=== PATIENT | male | born 1975 | race Caucasian/White ===

== ENCOUNTER → 2017-03-10 | Outpatient (CLI) | payer OTHER ==
--- NOTE | 2017-03-10 13:55 | REP ---
TRIPLE PHASE BONE SCAN LOWER LEGS: Following the intravenous administration of 22 millicuries technetium 99m MDP, the patient's lower legs are images in the flow phase in the anterior and posterior projections, showing symmetrical blood flow. Immediate blood pool and 2-hour delayed images are performed of the lower legs in the anterior, posterior, and both lateral projections. There is mild increased blood pooling and focal increased intense delayed activity in the distal left tibia. Findings are consistent with a focal stress fracture at this location. IMPRESSION: Focal stress fracture, distal left tibia. Signed by Bassam Celaya MD 03/10/2017 08:01 P
== END ==
LOC: M RAD 09:52
PROVIDERS: ATTEND Physician Assistant Medical
DX: S86.891A Other injury of other muscle(s) and tendon(s) at lower leg level, right leg, initial encounter (principal); S82.302A Unspecified fracture of lower end of left tibia, initial encounter for closed fracture; X50.9XXA Other and unspecified overexertion or strenuous movements or postures, initial encounter; Y92.9 Unspecified place or not applicable; Y99.9 Unspecified external cause status
CPT/HCPCS: 78315; A9503

== ENCOUNTER 2018-05-15 18:51 | Emergency (ER) | payer OTHER ==
[~2018-05-15] VITALS: Ht 188 cm; Wt 220.0 kg
[2018-05-15 18:51] VITALS: BP 141/91
[2018-05-15] MEDS ORDERED: MELO15TA28 PO (18:57)
--- NOTE | 2018-05-15 19:46 | REP ---
Clinical: Trauma. Technique: AP, lateral, bilateral oblique views right foot . Findings: The osseous structures and joint spaces are intact and normal. There is no evidence for acute fracture or dislocation. Surrounding soft tissues are unremarkable. No subcutaneous emphysema or radiodense foreign body. Impression: No acute fracture or dislocation. Electronically Signed by Ajit Robins MD 05/15/2018 07:38 P
== END 2018-05-15 21:37 | disposition home or self-care (01) ==
LOC: M ED 18:51
DX: S90.121A Contusion of right lesser toe(s) without damage to nail, initial encounter (principal); W23.0XXA Caught, crushed, jammed, or pinched between moving objects, initial encounter; Y92.099 Unspecified place in other non-institutional residence as the place of occurrence of the external cause; Y93.9 Activity, unspecified; Y99.9 Unspecified external cause status; Z79.899 Other long term (current) drug therapy

== ENCOUNTER 2018-06-26 21:56 | Emergency (ER) | payer OTHER ==
[~2018-06-26] VITALS: Ht 188 cm; Wt 100.0 kg
[~2018-06-26 21:56] MED LIST: MELO15TA28 PO
[2018-06-26] MEDS ORDERED: IBUP80TA PO (22:12)
[2018-06-26 22:13] LABS: HEMOGLOBIN 14.2 g/dl (13.5-17.5); MEAN CORPUSCULAR HEMOGLOBIN 28.7 pg (27.0-33.0); RED BLOOD COUNT 4.94 10^6/uL (4.30-6.10); WHITE BLOOD COUNT 5.6 10^3/uL (4.0-10.0)
[2018-06-26 22:14] LABS: BASO % 0.7 % (0.0-1.0); EOS # 0.2 10^3/uL (0.0-0.50); EOS % 3.6 % (0.0-3.0); LYMPH # 2.3 10^3/uL (1.5-4.5); LYMPH % 41.6 % (24.0-44.0); MONO # 0.7 10^3/uL (0.0-0.8); NEUTROPHILS # 2.3 10^3/uL (1.8-7.7); NEUTROPHILS % 41.7 % (36.0-66.0); PLATELET COUNT, AUTOMATED 221 10^3/uL (150-450)
[2018-06-26] MEDS ORDERED: KETOROLAC 30 MG/ML VIAL (J1885) IV ONE (22:30)
[2018-06-26 22:41] LABS: BLOOD UREA NITROGEN 24 MG/DL (7-18); CALCIUM LEVEL 8.5 MG/DL (8.5-10.1); CARBON DIOXIDE LEVEL 33 MEQ/L (21-32); CHLORIDE LEVEL 102 MEQ/L (98-107); CPK CREATINE PHOSPHOKINASE 277 U/L (39-308); CREATININE FOR GFR 1.49 MG/DL (0.70-1.30); GLOMERULAR FILTRATION RATE 54.3 (>60); GLUCOSE, FASTING 96 MG/DL (70-100); MB/CK RELATIVE INDEX 0.94 (< OR =4); POTASSIUM SERUM 4.3 MEQ/L (3.5-5.1); SODIUM LEVEL 139 MEQ/L (136-145); TROPONIN I < 0.02 NG/ML (< 0.10)
[2018-06-26] MEDS ORDERED: ISOVUE-370 76% 100ML VIAL (Q9967) As Ordered ONE (22:56)
[2018-06-26] MEDS ORDERED: NS 1,000 ML IV ONE (23:15)
--- NOTE | 2018-06-26 23:58 | REPVR ---
EXAM: CT Angiography Chest With Contrast EXAM DATE/TIME: 06/26/2018 11:06 PM CLINICAL HISTORY: 43 years old, male; Pain; Chest pain; Type not specified; Additional info: Chest pain, SOB TECHNIQUE: Axial computed tomographic angiography images of the chest with intravenous contrast using CT angiography protocol. All CT scans at this facility use at least one of these dose optimization techniques: automated exposure control; mA and/or kV adjustment per patient size (includes targeted exams where dose is matched to clinical indication); or iterative reconstruction. Coronal and sagittal reformatted images were created and reviewed. MIP reconstructed images were created and reviewed. CONTRAST: 75 ml of ISOVUE 370 administered intravenously. COMPARISON: CR PORTABLE CHEST X-RAY 06/26/2018 10:12 PM FINDINGS: Pulmonary arteries: There is opacification of the pulmonary artery with no evidence of pulmonary embolus. Aorta: There is opacification of the aorta which appears intact. Lungs: Normal. No consolidation. No masses. Pleural space: Normal. No pneumothorax. No pleural effusion. Heart: The heart is normal in size. There is no evidence of pericardial effusion. There is no evidence of mediastinal or hilar lymphadenopathy. There is a 2.5 CM by 1 CM area of calcified lymph nodes in the subcarinal location. There is a calcified lymph node at the right hilum. Calcified granulomas noted on the right. This may be from previous TB exposure. Strong Bones/joints: Unremarkable. No acute fracture. Soft tissues: Unremarkable. IMPRESSION: 1. No evidence of pulmonary embolus. 2. Calcified subcarinal and right hilar lymph node and calcified granulomas on the right may be the result of previous TB exposure. Electronically signed by: Todd Dyer On 06/26/2018 23:58:17 PM
[2018-06-27 01:30] VITALS: BP 121/83
--- NOTE | 2018-06-27 01:30 | REPVR ---
EXAM: CT Chest Without Contrast EXAM DATE/TIME: 06/27/2018 12:19 AM CLINICAL HISTORY: 43 years old, male; Chest pain; Additional info: Evaluate size of lymph node, ? extravascularization TECHNIQUE: Axial computed tomography images of the chest without intravenous contrast. All CT scans at this facility use at least one of these dose optimization techniques: automated exposure control; mA and/or kV adjustment per patient size (includes targeted exams where dose is matched to clinical indication); or iterative reconstruction. Coronal and sagittal reformatted images were created and reviewed. MIP reconstructed images were created and reviewed. COMPARISON: CT ANGIO CHEST 06/26/2018 10:57 PM FINDINGS: Lungs: There are calcified granulomas in the right lower lobe measuring up to 12 mm and a 2 mm calcified granuloma in the left upper lobe. The lungs are otherwise clear. There is no lung consolidation, cavitary lesion, pulmonary infarct, or mass. No emphysematous changes or interstitial lung disease is noted. The major airways are patent. Pleural space: Normal. No pneumothorax. No pleural effusion. Heart: No cardiomegaly. No pericardial effusion. Mediastinum: No mediastinal mass, hemorrhage, or pneumomediastinum is noted. Aorta: There is no thoracic aortic aneurysm or intramural hematoma. Lymph nodes: There is a 10 mm calcified subcarinal lymph node and 6 mm and 10 mm calcified right hilar lymph nodes, which represent calcified granulomas (measurements were taken in short axis). No abnormally enlarged noncalcified lymph nodes are noted. Bones/joints: The imaged bony structures are intact. There is no suspicious osteolytic or osteoblastic lesion. Soft tissues: Unremarkable. Adrenals: Normal. No mass. IMPRESSION: 1. No acute findings in the chest. 2. Calcified granulomas in the left upper lobe, right lower lobe, right hilum, and subcarinal region, which may represent the sequela of prior granulomatous infection and/or disease. Electronically signed by: Hunter Reyes On 06/27/2018 01:30:20 AM
[2018-06-27] MEDS ORDERED: NAPR-50 PO (01:43)
--- NOTE | 2018-06-27 07:26 | ECGEPIP ---
Stationary ECG Study [facility] - ED Test Date: 2018-06-26 Pat Name: KORY PONCE Department: Room: - Gender: M [employer]: nathalie : 1975 Requested By: SRINI Coleman Order Number: [id number] Reading MD: Julieta Krause Measurements Intervals [place] Rate: 50 P: 30 TN: 186 QRS: 18 QRSD: 110 T: 30 QT: 441 QTc: 402 Interpretive Statements SINUS BRADYCARDIA IVCD NO PRIOR FOR COMPARISON Electronically Signed On 06-27-2018 7:26:09 EST by Julieta Krause
--- NOTE | 2018-06-27 08:07 | REP ---
Clinical: Chest pain . Comparison: None . Findings: The mediastinum and cardiac silhouette are stable and within normal limits for portable technique. The lung ballard are clear without acute consolidation, effusion, or pneumothorax. Calcified granuloma at the right lung base and calcified hilar lymph nodes are appreciated. Skeletal structures are intact. Impression: No acute cardiopulmonary process appreciated. Electronically Signed by Ajit Robins MD 06/27/2018 07:59 A
--- NOTE | 2018-06-27 16:54 | ED PDOC ---
Post-Departure Follow-Up ct chest final report to fr delbert gotti for fu Tigist Roberts MD Jun 27, 2018 16:54
--- NOTE | 2018-06-27 16:57 | ED PDOC ---
Post-Departure Follow-Up ft delbert gotti faxed formal report of cta for fu Tigist Roberts MD Jun 27, 2018 16:57
== END 2018-06-27 01:49 | disposition home or self-care (01) ==
LOC: M ED 21:56
DX: R07.89 Other chest pain (principal); R06.02 Shortness of breath
CPT/HCPCS: 71045; 71250; 71275; 80048; 82550; 82553; 84484; 85025; 93005; 93041; 94760; 96374; 99285; J1885; Q9967

== ENCOUNTER → 2018-11-09 | Outpatient (REF) | payer OTHER ==
[~2018-11-09] MED LIST changes: +IBUP80TA PO; +NAPR-837 PO
== END ==
LOC: M SFHCLERA 12:20
PROVIDERS: ATTEND Nurse Practitioner Family
DX: J02.9 Acute pharyngitis, unspecified (principal)